=== PATIENT | female | born 1955 | race Caucasian/White ===

== ENCOUNTER → 2016-03-01 | Outpatient (CLI) | payer OTHER ==
[~2016-03-01] MED LIST: GADOBUTROL 10 ML VIAL IVP ONE
--- NOTE | 2016-03-01 17:20 | MR ---
MRI Abdomen, Without and With Contrast - March 01, 2016 Indication: Hepatic steatosis and indeterminate lesion left lobe of the liver. Technique: Axial single shot fast spin echo, axial and coronal 2-D T2-weighted FIESTA, axial T1 dual echo, pre- and postcontrast dynamic T1 fat-suppressed LAVA imaging, and diffusion-weighted imaging i n the axial plane. 9.5 mL of Gadavist were uneventfully intravenously administered. Comparison: Right upper quadrant ultrasound dated June 09, 2015 and January 10, 2016. Findings: Global hepatic steatosis is evidenced by generalized decreased signal intensity throughout the liver on the [id number] T1 sequence. A small rectangular focus of focal fatty sparing in the me dial segment left lobe of the liver, measuring 2.5 x 1.4 cm, retains at the hyperintense normal signa l on the [id number] sequence and corresponds to the finding on the recent ultrasound. The liver is otherwise normal. No cirrhosis or suspicious liver lesion. The liver is mildly enlarged measuring 21 cm craniocaudal on the right midaxillary line. The pancreas, gallbladder, pancreatic duct and bile ducts are all normal. No gallbladder sludge or st ones. No common bile duct stone. The ducts normally taper to the major papilla. The spleen, adrenal glands, and kidneys are normal. A benign 1.2-cm cyst in the right mid kidney has characteristic T2 hyperintense signal without enhancement. No hydronephrosis. Bowel pattern is normal. No intra-abdominal mass, lymphadenopathy or free fluid. Bone marrow signal i s normal. Impression: 1. Benign focal fatty sparing left lobe of the liver requires no additional surveillance. 2. Mild hepatomegaly and diffuse hepatic steatosis, unchanged. 3. Normal gallbladder. No cholelithiasis, biliary dilation or choledocholithiasis. 4. No intra-abdominal mass, lymphadenopathy or localized inflammatory process.
== END ==
LOC: FIMAGING 15:18
PROVIDERS: ATTEND Internal Medicine
DX: K76.0 Fatty (change of) liver, not elsewhere classified (principal); R16.0 Hepatomegaly, not elsewhere classified
CPT/HCPCS: A9585

== ENCOUNTER → 2016-08-16 | Outpatient (CLI) | payer OTHER | LOC: FIMAGING 09:28 | PROVIDERS: ATTEND Internal Medicine | DX: Z12.31 Encounter for screening mammogram for malignant neoplasm of breast (principal) | CPT/HCPCS: G0202 ==

== ENCOUNTER → 2017-04-25 | Outpatient (CLI) | payer OTHER | LOC: FIMAGING 10:12 | PROVIDERS: ATTEND Internal Medicine | DX: Z13.820 Encounter for screening for osteoporosis (principal); E07.9 Disorder of thyroid, unspecified; Z78.0 Asymptomatic menopausal state ==

== ENCOUNTER → 2017-08-17 | Outpatient (CLI) | payer OTHER | LOC: FIMAGING 08:37 | PROVIDERS: ATTEND Internal Medicine | DX: Z12.31 Encounter for screening mammogram for malignant neoplasm of breast (principal) ==

== ENCOUNTER → 2018-08-22 | Outpatient (CLI) | payer OTHER | LOC: FIMAGING 08:43 ==